=== PATIENT | male | born 1950 | race Caucasian/White ===

== ENCOUNTER 2018-11-25 09:08 | Emergency (ER) | payer MEDICARE, MEDICAID ==
[~2018-11-25] VITALS: Ht 177.8 cm; Wt 72.6 kg
--- NOTE | 2018-11-25 09:26 | Emergency Room Report ---
History of Present Illness General Chief Complaint: Behavioral Complaint Source: Patient, EMS Present Illness HPI Patient presents from the street by [employer] and police department patient was found throwing feces and yelling in the streets Upon arrival patient is not able to provide any input he is laughing and giggling intermittently History of present illness remains significantly limited Denies any abdominal pain denies any chest pain patient appears Disheveled Allergies: Coded Allergies: UNABLE TO ASSESS (Unverified , 11/25/18) Patient History Past Medical History: see triage record Reviewed Nursing Documentation: PMH: Agreed; PSxH: Agreed Review of Systems All Other Systems: limited - Other than the ones mentioned in the history of present illness all others are reviewed however they do stay limited due to the patient's mental status Physical Exam 98% RA Sp02 EP Interpretation: reviewed, normal General Appearance: no apparent distress - However disheveled Head: normocephalic, atraumatic Eyes: bilateral eye PERRL, bilateral eye EOMI ENT: normal pharynx, no angioedema Neck: supple Respiratory: lungs clear, no respiratory distress, no retraction Cardiovascular #1: regular rate, rhythm Gastrointestinal: non tender, soft Musculoskeletal: normal inspection Neurologic: alert, responsive Skin: other - Disheveled appearance, venous stasis and scabbing both lower extremities Lymphatic: no adenopathy Medical Decision Making Diagnostic Impression: Primary Impression: Gravely disabled Additional Impression: Schizophrenia ER Course Upon initial arrival patient appears disheveled Having a difficult time providing appropriate history Police Department here has now notified and identified the patient as a missing person After finding appropriate information contact is made with the facility that was reported the patient missing it is a boarding care facility in [facility] Contacted them they do have medication on file including Zyprexa and patient does appear to have underlying psychiatric history After initial blood work and medical clearance patient is now stable to be transported back to his boarding care facility for continued care Labs Test 11/25/18 09:30 White Blood Count 9.0 K/UL (4.8-10.8) Red Blood Count 4.49 M/UL (4.70-6.10) Hemoglobin 13.0 G/DL (14.2-18.0) Hematocrit 39.8 % (42.0-52.0) Mean Corpuscular Volume 89 FL (80-99) Mean Corpuscular Hemoglobin 29.0 PG (27.0-31.0) Mean Corpuscular Hemoglobin Concent 32.8 G/DL (32.0-36.0) Red Cell Distribution Width 13.1 % (11.6-14.8) Platelet Count 295 K/UL (150-450) Mean Platelet Volume 6.1 FL (6.5-10.1) Neutrophils (%) (Auto) 81.6 % (45.0-75.0) Lymphocytes (%) (Auto) 8.8 % (20.0-45.0) Monocytes (%) (Auto) 9.0 % (1.0-10.0) Eosinophils (%) (Auto) 0.1 % (0.0-3.0) Basophils (%) (Auto) 0.6 % (0.0-2.0) Sodium Level 141 MMOL/L (136-145) Potassium Level 3.8 MMOL/L (3.5-5.1) Chloride Level 104 MMOL/L (98-107) Carbon Dioxide Level 22 MMOL/L (21-32) Anion Gap 15 mmol/L (5-15) Blood Urea Nitrogen 36 mg/dL (7-18) Creatinine 1.2 MG/DL (0.55-1.30) Estimat Glomerular Filtration Rate > 60 mL/min (>60) Glucose Level 100 MG/DL (74-106) Calcium Level 9.2 MG/DL (8.5-10.1) Total Bilirubin 1.1 MG/DL (0.2-1.0) Direct Bilirubin 0.2 MG/DL (0.0-0.3) Aspartate Amino Transf (AST/SGOT) 25 U/L (15-37) Alanine Aminotransferase (ALT/SGPT) 18 U/L (12-78) Alkaline Phosphatase 89 U/L (46-116) Total Protein 7.3 G/DL (6.4-8.2) Albumin 3.6 G/DL (3.4-5.0) Globulin 3.7 g/dL Albumin/Globulin Ratio 1.0 (1.0-2.7) Salicylates Level 1.8 ug/mL (2.8-20) Urine Opiates Screen Negative (NEGATIVE) Acetaminophen Level < 2 MCG/ML (10-30) Urine Barbiturates Screen Negative (NEGATIVE) Phencyclidine (PCP) Screen Negative (NEGATIVE) Urine Amphetamines Screen Negative (NEGATIVE) Urine Benzodiazepines Screen Negative (NEGATIVE) Urine Cocaine Screen Negative (NEGATIVE) Urine Marijuana (THC) Screen Negative (NEGATIVE) Serum Alcohol < 3 mg/dL Status: improved Disposition: XFER SNF Condition: Improved Additional Instructions: Patient is provided with the discharge instructions notified to follow up with primary doctor in the next 2-3 days otherwise return to the er with any worsening symptoms. Please note that this report is being documented using [employer] technology. This can lead to erroneous entry secondary to incorrect interpretation by the dictating instrument. Nay Cisneros DO Nov 25, 2018 09:26
[2018-11-25 09:50] VITALS: BP 109/62
[2018-11-25 09:56] LABS: BASOPHILS % (AUTO) 0.6 % (0.0-2.0); EOSINOPHILS % (AUTO) 0.1 % (0.0-3.0); HEMATOCRIT 39.8 % (42.0-52.0); LYMPHOCYTES % (AUTO) 8.8 % (20.0-45.0); MEAN CORPUSCULAR VOLUME 89 FL (80-99); NEUTROPHILS % (AUTO) 81.6 % (45.0-75.0); PLATELET COUNT 295 K/UL (150-450); RED BLOOD COUNT 4.49 M/UL (4.70-6.10); RED CELL DISTRIBUTION WIDTH 13.1 % (11.6-14.8)
--- NOTE | 2018-11-25 10:00 | NUR ---
ED Nurse Note: pt arrives via [facility] for ams with [facility] assisting to bring pt in. pt is not in custody. pt was found standing on sidewalk pulling off clothing and playing with his feces. pt is able to state name upon arrival. pt is poor hygiene. pt tolerates cleansing, iv start with lab draw and straight cath I/O urine obtainment. pt unable to answer orientation questions other than name. unable to state his medical hx. pt changed into gown and belongings locked in cabinet in ortho rm, belongings list done.
[2018-11-25 10:12] LABS: ANION GAP 15 mmol/L (5-15); BLOOD UREA NITROGEN 36 mg/dL (7-18); CALCIUM 9.2 MG/DL (8.5-10.1); CARBON DIOXIDE 22 MMOL/L (21-32); CHLORIDE 104 MMOL/L (98-107); CREATININE 1.2 MG/DL (0.55-1.30); POTASSIUM 3.8 MMOL/L (3.5-5.1); SODIUM 141 MMOL/L (136-145)
[2018-11-25 10:19] LABS: ALANINE AMINOTRANSFERASE 18 U/L (12-78); ALBUMIN 3.6 G/DL (3.4-5.0); ALKALINE PHOSPHATASE 89 U/L (46-116); ASPARTATE AMINO TRANSFERASE 25 U/L (15-37); BILIRUBIN,TOTAL 1.1 MG/DL (0.2-1.0)
[2018-11-25 10:20] LABS: BILIRUBIN,DIRECT 0.2 MG/DL (0.0-0.3)
--- NOTE | 2018-11-25 10:22 | NUR ---
ED Nurse Note: pt noted to be resting in room with even regular resp effort.
--- NOTE | 2018-11-25 11:20 | NUR ---
ED Nurse Note: pt tolerates ivf well, remains confused but calm and cooperative in ed.
[2018-11-25] MEDS ORDERED: BENZTROPINE ME0.5 MG PO (12:22)
[2018-11-25] MEDS ORDERED: ZYPREXA ZYDIS10 MG ORAL (12:22)
[2018-11-25] MEDS ORDERED: DEPAKOTE500 MG PO (12:22)
[2018-11-25] MEDS ORDERED: ASPIRIN-LOW81 MG ORAL (12:22)
--- NOTE | 2018-11-25 13:55 | NUR ---
ED Nurse Note: attempted to give report to facility. voicemail left for them to call us back
--- NOTE | 2018-11-25 14:02 | NUR ---
ED Nurse Note: pt transported back to board and care with [facility]. belongings sent with pt. vss. pt remains alert and oriented to self. cooperative with ems crew
[2018-11-25 14:05] VITALS: BP 109/70
== END 2018-11-25 14:07 | disposition home or self-care (01) ==
LOC: EDBD 09:08 → EMR 09:37 → EDBD 09:37 → EMR 14:07
DX: F20.9 Schizophrenia, unspecified (principal); R46.1 Bizarre personal appearance
CPT/HCPCS: 36415; 80053; 80307; 82248; 85025; 96360; 99284; G0480; 80329